=== PATIENT | female | born 1965 | race Caucasian/White ===

== ENCOUNTER 2019-04-23 17:56 | Inpatient (IN) ==
[2019-04-23] MEDS ORDERED: LABETALOL IV ONE (18:23)
--- NOTE | 2019-04-23 18:34 | EKG Report ---
Test Performed on : 04/23/2019 6:11:41 PM Test Reason : Stroke like symptoms Blood Pressure : / mmHG Vent. Rate : 102 BPM Atrial Rate : 102 BPM P-R Int : 128 ms QRS Dur : 070 ms QT Int : 374 ms P-R-T Axes : 063 069 081 degrees QTc Int : 487 ms Sinus tachycardia. Otherwise normal ECG When compared with ECG of 21-DEC-2016 12:56, ID interval has increased Unconfirmed Result
[2019-04-23 18:49] LABS: BASO# 0.04 X1000 (0.0-0.2); BASO% 0.4 % (0.0-0.8); EOS# 0.36 X1000 (0.0-0.7); HEMATOCRIT 49.3 % (37.0-47.0); HEMOGLOBIN 16.8 g/dL (12.0-16.0); LYMPH# 2.77 X1000 (1.2-3.4); LYMPH% 30.7 % (20.5-51.1); MCH 30.1 PG (27-31); MCHC 34.1 g/dL (33-37); MCV 88.2 FL (81-99); MONO# 0.74 X1000 (0.11-0.59); MONO% 8.2 % (1.7-9.3); NEUT# 5.11 X1000 (1.4-6.5); NEUT% 56.7 % (42.2-75.2); PLT 245 X1000 (130-400); RBC 5.59 XMIL (4.2-5.4); RDW 13.3 % (11.5-14.5); WBC 9.02 X1000 (4.8-10.8)
--- NOTE | 2019-04-23 18:55 | PROVIDER DOCUMENTATION ---
This chart was entered by Lisy Harrison Scribe, acting as scribe for Saul Palomares MD. HPI-General Adult - General Source: patient - History of Present Illness -Gen Adult Nature of Presenting Problems: pt is a 53 yr old female presenting with complaint of left arm and leg weakness onset 1500 today, pt reports difficulty lift arm at onset, now resolved. pt re ports numbness continues.. pt also reports onset of headache approx 30min captain cannery tender. pt denies any chest pain, shortness of breath, dizziness, nausea or vomiting. pt denies any facial numbness Location of Pain/Injury: reports: head Pain Radiation: reports: no radiation Quality of Pain: reports: throbbing Severity: reports: moderate Onset/Duration: reports: this afternoon Timing: reports: still present, changing over time Context/Activities at Onset: reports: light activity Modifying Factors: improves with: nothing Associated Symptoms: reports: headaches, sensory/motor loss (left arm, left leg) . denies: chest pain, dizziness, fatigue, fever/chills, nausea, syncope, vomiting, trouble walking Similar Symptoms Previously?: No Recently seen or treated by another doctor?: No <Saul Palomares - Last Filed: 04/23/19 20:21> <Elda Reveles - Last Filed: 04/23/19 21:27> - General Chief Complaint: Numbness Stated Complaint: LT SIDE NUMBNESS Time Seen by Provider: 04/23/19 18:15 Allergies/Adverse Reactions: Patient Allergies Allergy/AdvReac Type Severity Reaction Status Date / Time No Known Allergies Allergy Verified 04/23/19 18:36 Home Medications: Home Medication List Medication Instructions Recorded Confirmed Last Taken Type Albuterol 0.5% INH Conc [Albuterol 2.5 mg INH BID 07/04/14 04/23/19 12/21/16 History 0.5% INH Conc For Hyperkalemia] Albuterol Sulfate [Proair Hfa] 2 puff IH Q4-6H PRN PRN #1 06/17/16 04/23/19 04/23/19 Rx [email or web address] Lisinopril/Hydrochlorothiazide 1 each PO QAM #30 tablet 06/17/16 04/23/19 04/22/19 Rx [Lisinopril-Hctz 10-12.5 mg Tab] Review of Systems - Adult - REVIEW OF SYSTEMS - ADULT Constitutional: denies: fever, fatique Eyes: denies: decreased vision, blurred vision, double vision Ears, Nose, Mouth & Throat: reports: no symptoms reported Cardiovascular: denies: chest pain, palpitations, syncope Respiratory: denies: cough, shortness of breath Gastrointestinal: reports: no symptoms reported Genitourinary: reports: no symptoms reported Musculoskeletal: reports: muscle weakness (left arm, left leg). denies: back pain, joint pain, neck pain Integumentary: reports: no symptoms reported Neurological: reports: headache/migraines, numbness (left arm, left leg). denies: dizziness/vertigo, slurred speech Psychiatric: reports: no symptoms reported Endocrine: reports: no symptoms reported Hematologic/Lymphatic: reports: no symptoms reported Allergic/Immunologic: reports: no symptoms reported All Other Systems: Reviewed and Negative <Saul Palomares - Last Filed: 04/23/19 20:21> Past History - Adult - PAST MEDICAL HISTORY-ADULT Review of Records: reports: Old Records Reviewed, Nursing Assessment Review, Medications Reviewed, Social history reviewed & non-contributory. Major Childhood Illnesses: reports: denies history Cardiovascular: reports: CHF, HTN, PVD Respiratory: reports: COPD Gastrointestinal: reports: denies history Obstetrical/Gynecological: reports: denies history Genitourinary: reports: denies history Musculoskeletal: reports: chronic pain (back problems) Neurological: reports: denies history Endocrine/Immune: reports: denies history Other Conditions: reports: denies history - PRIOR SURGERIES/PROCEDURES Surgical/Procedure History: reports: hysterectomy - IMMUNIZATION STATUS Childhood Immunizations: See Nurse Assessment Flu Vaccine: See Nurse Assessment - FAMILY HISTORY Family History: reviewed, not pertinent - SOCIAL HISTORY Smoking: cigarettes, less than 1 pack/day Provider spent 3-5 mins advising pt. on dangers of tobacco.: Discussed manners to quit use, and f/u contacts for add'l counseling. Substance Use: denies Living Situation: family <Saul Palomares - Last Filed: 04/23/19 20:21> Physical Exam-General - PHYSICAL EXAM-ADULT Initial Vital Signs Reviewed: Yes - CONSTITUTIONAL General Appearance: appears well, alert, no apparent distress - EYES Eyes: PERRL/EOMI - HEAD, EARS, NOSE, MOUTH & THROAT HENMT: normocephalic/atraumatic, moist mucous membranes, normal ENT inspection - NECK Neck: non-tender, full range of motion, supple, normal inspection - RESPIRATORY Respiratory: chest non-tender, lungs clear, normal breath sounds, no respiratory distress, no accessory muscle use - CARDIOVASCULAR Cardiovascular: normal peripheral pulses, tachycardia - GASTROINTESTINAL (ABDOMEN) Abdominal Exam: normal bowel sounds, non tender, soft - LYMPHATIC Lymphatic: no adenopathy - MUSCULOSKELETAL Back Exam: normal inspection, no CVA tenderness, no vertebral tenderness Extremity: normal range of motion, non-tender, normal gait, no pedal edema, no calf tenderness, normal capillary refill Peripheral Pulses: radial (R): 2+, radial (L): 2+, dorsalis-pedis (R): 2+, dors surjit-pedis (L): 2+ - SKIN Integumentary: normal color, normal turgor, warm/dry - NEUROLOGIC Neurologic: motor weakness (4/5 left leg weakness), other (CN II-XII intact) - PSYCHIATRIC Psych/Mental Status: normal mood/affect <Saul Palomares - Last Filed: 04/23/19 20:21> Progress - PLAN OF CARE/RESULTS Progress/Plan/Lab Results: Vital Signs - 8 hr 04/23/19 18:04 Temperature 97.6 F Pulse Rate 112 H Respiratory Rate 19 Blood Pressure 183/111 O2 Sat by Pulse Oximetry 100 Orders Category Date Time Status Cardiac Monitoring DIRECTED Care 04/23/19 18:12 Active Finger Stick Blood Sugar (ED) DIRECTED Care 04/23/19 18:12 Active Oxygen Therapy- ED Nursing DIRECTED Care 04/23/19 18:12 Active Saline Loc NOW Care 04/23/19 18:12 Active CHEST-PORTABLE [RAD] Stat Exams 04/23/19 18:12 Ordered CBC WITH ELECTRONIC DIFF [HEME] Stat Lab 04/23/19 18:12 Uncollected COMPREHENSIVE METABOLIC PANEL [CHEM] Stat Lab 04/23/19 18:12 Uncollected PROTIME WITH INR [COAG] Stat Lab 04/23/19 18:12 Uncollected PTT [COAG] Stat Lab 04/23/19 18:12 Uncollected TROPONIN T Stat Lab 04/23/19 18:12 Uncollected URINALYSIS W/POSS RFLX CULT [URINALYSIS] Stat Lab 04/23/19 18:12 Uncollected URINE DRUG SCREEN Stat Lab 04/23/19 18:12 Uncollected Labetalol Med 04/23/19 18:23 Once 20 mg IV NOW ONE EKG [EKG] Stat Ther 04/23/19 18:12 Ordered Result Diagrams: 04/23/19 18:30 04/23/19 18:30 - EKG 1 Time of EKG reading by physician:: 18:14 EKG Read and Signed by:: Saul Palomares EKG Interpretation (*Must complete 3 of following elements*): Normal Rate: 102 Rhythm: sinus tach [place]: normal QRS: normal [place] Interval: normal ST Wave: normal - XRAY 1 XRAY Study: Chest Impression: Normal ( Signed EXAM: CHEST-PORTABLE INDICATION: stroke like symptoms TECHNIQUE: One view COMPARISON: 12/21/2016 FINDINGS: The lungs are grossly clear. There is no discrete pleural fluid collection or pneumothorax. The cardiomediastinal silhouette and central vasculature are grossly unremarkable. IMPRESSION: No evidence of acute pathology by plain radiograph. Electronically signed by Jimmy Caban 04/23/2019 7:09 PM 04/23/191908 Interpreting Physician: Jimmy Caban MD Dictated Date/Time: 04/23/191908 cc: Saul Palomares MD; None,PCP) Comparison with other Films: no changes (12/21/16) - CT/MRI 1 CT Study: Head Impression: Abnormal ( EXAM: CT HEAD W/O CONTRAST INDICATION: ? left arm and leg weakness TECHNIQUE: This exam was performed using automated exposure control, adjustment of mA or kV according to patient size, and/or use of it erative reconstruction technique. COMPARISON: 12/21/2016 FINDINGS: During the interval, there has been development of chronic lacunar infarcts involving the right basal ganglion and thalamus on the right as well as the right external capsule. Although these were not present on the previous study, they are near CSF density indicating that they're chronic. There is no definite acute infarct given the limited sensitivity of CT versus MRI. There is no discrete intracranial mass, mass effect, or intracranial hemorrhage. The surrounding soft tissues and bony structures are essentially unremarkable. IMPRESSION: Several chronic lacunar infarcts that have developed on the right since the previous study. No definite acute intracranial pathology is appreciated by CT. Electronically signed by Jimmy Caban 04/23/2019 7:19 PM 04/23/191918 Interpreting Physician: Jimmy Caban MD Dictated Date/Time: 04/23/191915 cc: Saul Palomares MD; None,PCP) Comparison with other Films: changes noted (12/21/16) - CHANGE OF SHIFT REPORT (ED Provider) 1 Report Given and Care Transferred to:: Dr. Araujo Time of Transfer: 19:00 Items Pending: Labs, CT/MRI Results <Saul Palomares - Last Filed: 04/23/19 20:21> - PLAN OF CARE/RESULTS Progress/Plan/Lab Results: Vital Signs - 8 hr 04/23/19 18:04 04/23/19 18:29 04/23/19 18:30 Temperature 97.6 F Pulse Rate 112 H 104 H 112 H Respiratory Rate 19 18 19 Blood Pressure 183/111 192/126 O2 Sat by Pulse Oximetry 100 99 100 04/23/19 18:31 04/23/19 18:45 04/23/19 18:52 Temperature Pulse Rate 107 H 103 H 87 Respiratory Rate 17 20 20 Blood Pressure 134/95 O2 Sat by Pulse Oximetry 100 100 98 04/23/19 19:00 04/23/19 19:17 04/23/19 19:30 Temperature Pulse Rate 87 84 86 Respiratory Rate 16 18 22 Blood Pressure O2 Sat by Pulse Oximetry 98 90 L 100 04/23/19 19:33 04/23/19 19:45 04/23/19 19:58 Temperature Pulse Rate 84 85 87 Respiratory Rate 20 20 15 Blood Pressure 134/95 181/128 O2 Sat by Pulse Oximetry 99 97 98 04/23/19 20:00 Temperature Pulse Rate 92 H Respiratory Rate 23 Blood Pressure O2 Sat by Pulse Oximetry 91 L Laboratory Results - last 24 hr 04/23/19 04/23/19 04/23/19 18:30 18:30 18:30 WBC 9.02 RBC 5.59 H Hgb 16.8 H Hct 49.3 H MCV 88.2 MCH 30.1 MCHC 34.1 RDW Std Deviation 13.3 Plt Count 245 MPV 11.0 H Immature Gran % (Auto) 0.0 Neut % (Auto) 56.7 Lymph % (Auto) 30.7 [place] % (Auto) 8.2 Eos % (Auto) 4.0 Baso % (Auto) 0.4 Immature Gran # (Auto) 0.00 Neut # (Auto) 5.11 Lymph # (Auto) 2.77 [place] # (Auto) 0.74 H Eos # (Auto) 0.36 Baso # (Auto) 0.04 PT 12.3 INR 0.91 PTT (Actin FS) 27.4 Sodium 141 Potassium 3.9 Chloride 101 Carbon Dioxide 26 Anion Gap 14 BUN 10 Creatinine 0.8 Estimated GFR/1.73 m2 > 60 BUN/Creatinine Ratio 13 Glucose 103 Calculated Osmolality 281 Calcium 8.7 L Total Bilirubin 0.31 AST 17 ALT 16 Alkaline Phosphatase 96 Troponin T Total Protein 7.1 Albumin 4.3 Globulin 2.8 Albumin/Globulin Ratio 1.5 Urine Source Urine Color Urine Turbidity Urine pH Ur Specific [place] Urine Protein Ur Glucose (Stick) Ur Ketones (Stick) Urine Blood Urine Nitrite Urine Bilirubin Urobilinogen Dipstick Urine Leukocytes Urine WBC (Auto) Urine RBC (Auto) U Epithel Cells (Auto) Urine Bacteria (Auto) Urine Opiates Screen Ur Oxycodone Screen Ur Methadone, Qual Ur Barbiturates Screen Ur Phencyclidine Scrn Ur Amphetamines Screen U Benzodiazepines Scrn Urine Cocaine Screen U Cannabinoids Screen 04/23/19 04/23/19 04/23/19 18:30 20:37 20:37 WBC RBC Hgb Hct MCV MCH MCHC RDW Std Deviation Plt Count MPV Immature Gran % (Auto) Neut % (Auto) Lymph % (Auto) [place] % (Auto) Eos % (Auto) Baso % (Auto) Immature Gran # (Auto) Neut # (Auto) Lymph # (Auto) [place] # (Auto) Eos # (Auto) Baso # (Auto) PT INR PTT (Actin FS) Sodium Potassium Chloride Carbon Dioxide Anion Gap BUN Creatinine Estimated GFR/1.73 m2 BUN/Creatinine Ratio Glucose Calculated Osmolality Calcium Total Bilirubin AST ALT Alkaline Phosphatase Troponin T < 0.010 Total Protein Albumin Globulin Albumin/Globulin Ratio Urine Source CLEAN CATCH Urine Color STRAW Urine Turbidity CLEAR Urine pH 6.5 Ur Specific [place] 1.008 Urine Protein NEGATIVE Ur Glucose (Stick) NEGATIVE Ur Ketones (Stick) NEGATIVE Urine Blood NEGATIVE Urine Nitrite NEGATIVE Urine Bilirubin NEGATIVE Urobilinogen Dipstick NORMAL Urine Leukocytes NEGATIVE Urine WBC (Auto) <10 Urine RBC (Auto) <10 U Epithel Cells (Auto) <10 Urine Bacteria (Auto) NEGATIVE Urine Opiates Screen NONE DETECTED Ur Oxycodone Screen NONE DETECTED Ur Methadone, Qual NONE DETECTED Ur Barbiturates Screen NONE DETECTED Ur Phencyclidine Scrn NONE DETECTED Ur Amphetamines Screen PRESUMPTIVE POSITIVE A U Benzodiazepines Scrn NONE DETECTED Urine Cocaine Screen NONE DETECTED U Cannabinoids Screen NONE DETECTED Orders Category Date Time Status Cardiac Monitoring DIRECTED Care 04/23/19 18:12 Active Finger Stick Blood Sugar (ED) DIRECTED Care 04/23/19 18:12 Active Oxygen Therapy- ED Nursing DIRECTED Care 04/23/19 18:12 Active Saline Loc NOW Care 04/23/19 18:12 Active CHEST-PORTABLE [RAD] Stat Exams 04/23/19 18:[address] HEAD W/O CONTRAST [CT] Stat Exams 04/23/19 18:24 Completed CBC WITH ELECTRONIC DIFF [HEME] Stat Lab 04/23/19 18:30 Completed COMPREHENSIVE METABOLIC PANEL [CHEM] Stat Lab 04/23/19 18:30 Completed PROTIME WITH INR [COAG] Stat Lab 04/23/19 18:30 Completed PTT [COAG] Stat Lab 04/23/19 18:30 Completed TROPONIN T Stat Lab 04/23/19 18:30 Completed URINALYSIS W/POSS RFLX CULT [URINALYSIS] Stat Lab 04/23/19 20:37 Completed URINE DRUG SCREEN Stat Lab 04/23/19 20:37 Completed Aspirin Med 04/23/19 20:05 Discontinued 325 mg PO NOW ONE Labetalol Med 04/23/19 18:23 Discontinued 20 mg IV NOW ONE Labetalol [Trandate] Med 04/23/19 20:32 Discontinued 100 mg PO NOW ONE EKG [EKG] Stat Ther 04/23/19 18:12 Draft Result Diagrams: 04/23/19 18:30 04/23/19 18:30 - REASSESSMENT Reassessment #1 Status: improving (continued mild left sided weakness and numbness but improved since onset. Concerning for a subacute CVA and not a TPA candidate as onset at 3pm. ASA given and BP improving with labetalol. Will admit for further evaluation and treatment. Discussed case with Dr. Walters, Hospitalist, who will see and admit pt.) <Elda Reveles - Last Filed: 04/23/19 21:27> Departure - Departure Date of Disposition Decision: 04/23/19 Certified Medical Emergency: Emergent <Saul Palomares - Last Filed: 04/23/19 20:21> - Departure Time of Disposition Decision: 21:24 - Critical Care Note This patient required my direct & personal management of CC.: No <Elda Reveles - Last Filed: 04/23/19 21:27> - Departure DIAGNOSIS: Numbness and tingling of left arm and leg CVA (cerebral vascular accident) Qualifiers: CVA mechanism: unspecified Qualified Code(s): I63.9 - Cerebral infarction, unspecified Disposition: ADMITTED INPATIENT 09 Condition: Stable Attestation - Physician/ LOCO Attestation Patient care was provided by Advanced Practice Provider:: No The physician spent face to face time with patient:: Yes Advanced Practice Provider documentation review:: Supervising physician onsite and consulted in the evaluation and care of this patient. The physician did have a face to face encounter with the patient. <Elda Reveles - Last Filed: 04/23/19 21:27> This chart was documented by the indicated scribe, (Lisy Harrison, Scriblilli) and accurately reflects the services I performed and decisions made by Marielle garcia Frederick B., MD, as attested by the provider's signature.
[2019-04-23 18:56] LABS: INR 0.91; PROTIME 12.3 Seconds (11.0-16.0)
[2019-04-23 18:57] LABS: PTT 27.4 Seconds (22.3-41.8)
--- NOTE | 2019-04-23 19:11 | Diag Imaging Result Doc PS360 ---
EXAM: CHEST-PORTABLE INDICATION: stroke like symptoms TECHNIQUE: One view COMPARISON: 12/21/2016 FINDINGS: The lungs are grossly clear. There is no discrete pleural fluid collection or pneumothorax. The cardiomediastinal silhouette and central vasculature are grossly unremarkable. IMPRESSION: No evidence of acute pathology by plain radiograph. Electronically signed by Jimmy Caban 04/23/2019 7:09 PM
--- NOTE | 2019-04-23 19:21 | Diag Imaging Result Doc PS360 ---
EXAM: CT HEAD W/O CONTRAST INDICATION: ? left arm and leg weakness TECHNIQUE: This exam was performed using automated exposure control, adjustment of mA or kV according to patient size, and/or use of iterative reconstruction technique. COMPARISON: 12/21/2016 FINDINGS: During the interval, there has been development of chronic lacunar infarcts involving the right basal ganglion and thalamus on the right as well as the right external capsule. Although these were not present on the previous study, they are near CSF density indicating that they're chronic. There is no definite acute infarct given the limited sensitivity of CT versus MRI. There is no discrete intracranial mass, mass effect, or intracranial hemorrhage. The surrounding soft tissues and bony structures are essentially unremarkable. IMPRESSION: Several chronic lacunar infarcts that have developed on the right since the previous study. No definite acute intracranial pathology is appreciated by CT. Electronically signed by Jimmy Caban 04/23/2019 7:19 PM
[2019-04-23 19:34] LABS: AGAP 14; ALB/GLOB RATIO 1.5; ALBUMIN 4.3 g/dL (3.5-5.0); ALKALINE PHOSPHATASE 96 U/L (32-104); BUN 10 mg/dL (8-22); CALCIUM 8.7 mg/dL (8.8-10.2); CHLORIDE 101 mmol/L (98-107); COSMO 281; CREATININE 0.8 mg/dL (0.5-0.9); ESTIMATED GFR > 60; GLUCOSE 103 mg/dL (70-104); GOT 17 U/L (10-30); GPT 16 U/L (10-36); POTASSIUM 3.9 mmol/L (3.5-5.1); SODIUM 141 mmol/L (136-145); TCO2 26 mmol/L (25-35); TOTAL BILIRUBIN 0.31 mg/dL (0.20-1.00); TOTAL PROTEIN 7.1 g/dL (6.3-8.3)
[2019-04-23] MEDS ORDERED: ASPIRIN PO ONE (20:05)
[2019-04-23] MEDS ORDERED: TRANDATE PO ONE (20:32)
[2019-04-23 20:42] LABS: URINE SOURCE CLEAN CATCH
[2019-04-23 20:48] LABS: COLOR STRAW; TURBIDITY URINE CLEAR (CLEAR)
[2019-04-23 20:49] LABS: BILIRUBIN URINE NEGATIVE (NEGATIVE); BLOOD URINE NEGATIVE (NEGATIVE); GLUCOSE URINE NEGATIVE (NEGATIVE); KETONE URINE NEGATIVE (NEGATIVE); LEUKOCYTES URINE NEGATIVE (NEGATIVE); NITRITE URINE NEGATIVE (NEGATIVE); PH URINE 6.5; PROTEIN URINE NEGATIVE (NEGATIVE); SP GRAVITY URINE 1.008; UROBILINOGEN URINE NORMAL (NORMAL)
[2019-04-23 20:50] LABS: UR EPITHELIAL CELLS <10 /HPF (<10); URINE BACTERIA NEGATIVE /HPF; URINE RBC <10 /HPF (<10); URINE WBC <10 /HPF (<10)
[2019-04-23 21:09] LABS: UR AMPHETAMINES QUAL PRESUMPTIVE POSITIVE (NONE DETECT); UR BARBITUATES QUAL NONE DETECTED (NONE DETECT); UR BENZODIAZEPIN QUAL NONE DETECTED (NONE DETECT); UR CANNABINOIDS QUAL NONE DETECTED (NONE DETECT); UR COCAINE QUAL NONE DETECTED (NONE DETECT); UR METHADONE QUAL NONE DETECTED (NONE DETECT); UR OPIATES QUAL NONE DETECTED (NONE DETECT); UR OXYCODONE QUAL NONE DETECTED (NONE DETECT); UR PCP QUAL NONE DETECTED (NONE DETECT)
[2019-04-23] MEDS ORDERED: ZOFRAN IV PRN (22:44)
[2019-04-24] MEDS: NS 1,000 ML IV SCH ×2 (00:12→12:49)
--- NOTE | 2019-04-24 02:26 | HISTORY AND PHYSICAL ---
CHIEF COMPLAINT: Left-sided weakness. HISTORY OF PRESENT ILLNESS: The patient is a 53-year-old female who unfortunately has a known history of chronic tobacco abuse for which she still smokes. She denies any history of stroke in the past. Does have high blood pressure but states she does not typically check it at home. She presented to the hospital with left-sided weakness. Interestingly, this left-sided weakness seems to come and go. She was able to feed herself a cheeseburger until her daughter arrived and now she has no movement of her left arm. MEDICATIONS: Albuterol, lisinopril, hydrochlorothiazide. PAST MEDICAL HISTORY: Significant for hypertension, chronic tobacco abuse, chronic pain, COPD. Has a reported history of peripheral vascular disease and congestive heart failure. SURGICAL HISTORY: She has had a hysterectomy. FAMILY HISTORY: Positive for hypertension. SOCIAL HISTORY: The patient continues to smoke anywhere from a half to a pack a day. Denies alcohol. She denies substance use. ALLERGIES: No known drug allergies. PHYSICAL EXAMINATION: VITAL SIGNS: Reviewed. Temperature 97.6 degrees, pulse 112, respiratory 19, BP 183/111, saturation currently 100% on room air. GENERAL: Patient is awake, alert. She is in no current respiratory distress. HEENT: Normocephalic. NECK: Supple. CARDIOVASCULAR: Regular rate currently although has been quite tachycardic upon initial arrival. No murmurs. CHEST: Clear, nonlabored. ABDOMEN: Soft, nondistended, nontender. EXTREMITIES: No edema. She moves her right upper and lower extremity without any difficulty. She does have 1/5 strength in her left foot. Her left hand she notes that she has no ability to move it as her hand is sitting at the side of her waist with her fingers clenched in a fist-like motion. NEUROLOGIC: She is awake, alert, oriented. Denies any facial issues. Denies any blurred vision. Denies any difficulty swallowing. LABORATORIES: CBC normal. CMP normal. Urine drug screen abnormal for methamphetamines. ASSESSMENT: 1. Hypertensive urgency. Blood pressures are much improved at 134/95 compared to her 190s over 130s upon initial admission to the hospital. 2. Transient ischemic attack. 3. Chronic tobacco abuse. 4. Abnormal urine drug screen. 5. History of congestive heart failure. PLAN: We will admit patient to the hospital. We are going to follow her blood pressures. Check echo and carotid in the morning. Continue to treat her blood pressure with hydralazine. We will monitor for withdrawal. Again discussed with patient the perils of smoking as well as the importance of stopping. We will check cholesterol in the morning. Further orders as needed. cc: Richard Walters MD
[2019-04-24 05:48] LABS: HEMATOCRIT 46.9 % (37.0-47.0); HEMOGLOBIN 15.6 g/dL (12.0-16.0); MCH 29.7 PG (27-31); MCHC 33.3 g/dL (33-37); MCV 89.2 FL (81-99); MPV 10.8 FL (7.4-10.4); RBC 5.26 XMIL (4.2-5.4); RDW 13.2 % (11.5-14.5); WBC 7.52 X1000 (4.8-10.8)
[2019-04-24 06:26] LABS: AGAP 9; ALB/GLOB RATIO 1.5; ALBUMIN 3.6 g/dL (3.5-5.0); ALKALINE PHOSPHATASE 86 U/L (32-104); BUN 11 mg/dL (8-22); CALCIUM 8.3 mg/dL (8.8-10.2); CHLORIDE 105 mmol/L (98-107); COSMO 280; CREATININE 0.7 mg/dL (0.5-0.9); ESTIMATED GFR > 60; GLUCOSE 83 mg/dL (70-104); GOT 12 U/L (10-30); GPT 13 U/L (10-36); MAGNESIUM 1.7 mg/dL (1.5-2.7); POTASSIUM 3.4 mmol/L (3.5-5.1); SODIUM 141 mmol/L (136-145); TCO2 27 mmol/L (25-35); TOTAL BILIRUBIN 0.42 mg/dL (0.20-1.00)
[2019-04-24 06:27] LABS: CHOLESTEROL 186 mg/dL (0-200); HDL 50 mg/dL (45-65); LDL 116 mg/dL; TRIGLYCERIDES 101 mg/dL (35-135); VLDL 20 mg/dL
[2019-04-24] MEDS: TYLENOL PO PRN (09:01)
[2019-04-24] MEDS: APRESOLINE IV PRN ×2 (09:02→14:09)
[2019-04-24] MEDS ORDERED: MORPHINE IV ONE (10:44)
[2019-04-24] MEDS ORDERED: KLOR-CON PO ONE (11:06)
[2019-04-24] MEDS ORDERED: ULTRAM PO PRN (11:24)
[2019-04-24] MEDS: PRINZIDE 10/12.5MG PO SCH (12:31)
--- NOTE | 2019-04-24 13:00 | Diag Imaging Result Doc PS360 ---
EXAM: MRI BRAIN W/O CONTRAST 04/24/2019 HISTORY: Stroke TECHNIQUE: T1 sagittal and axial, T2, FLAIR, DWI axial and coronal gradient echo COMMENT: There are multiple punctate areas of increased T2-weighted signal intensity present in the left cerebellar peduncle and in the upper ama and midbrain. There are multiple lacunae present in the right thalamus and basal ganglia. There are patchy areas of increased T2-weighted signal intensity in the centrum semiovale ovale region bilaterally and in the periventricular white matter particularly in the frontal lobes. There is a focus of increased T2-weighted signal intensity in the external capsule on the right and posteriorly in the internal capsule on the left. There is no evidence of bleed or abnormal extra-axial fluid collection. There are foci of restricted diffusion present in the caudate nucleus on the left and in the posterior limb of the internal capsule and adjacent basal ganglia on the right. No evidence of mass effect is present. IMPRESSION: Multiple acute or subacute lacunar infarctions as described above. Chronic ischemic microvascular changes. The findings were discussed with Uriah Guzman MD at 04/24/2019 12:54 PM. Electronically signed by Douglas Rangel 04/24/2019 12:58 PM
--- NOTE | 2019-04-24 13:03 | Diag Imaging Result Doc PS360 ---
EXAM: MRA BRAIN W/CONTRAST 04/24/2019 HISTORY: Stroke TECHNIQUE: 3-D [id number] COMMENT: The left posterior cerebral artery is supplied primarily from the posterior communicating artery. The P1 segment appears to be hypoplastic or occluded. There is also an apparent stenotic area in the P1 segment on the right side. Both anterior cerebral and middle cerebral arteries are patent. There is no evidence of aneurysm. 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 The possibility of additional small vessel disease cannot be excluded. Electronically signed by Douglas Rangel 04/24/2019 1:00 PM
--- NOTE | 2019-04-24 13:16 | PROGRESS NOTE ---
DATE: 04/24/2019 SUBJECTIVE: This patient is lying comfortably in bed. She is not able to move her left upper extremity and strength at the level of the left lower extremity is about 2/5. Sensation looks intact. I have requested an MRI of the head as well, carotic ultrasound and echocardiogram. Also have requested physical therapy and an evaluation by Neurology Department. OBJECTIVE: Vital Signs: Temperature 97.6 degrees, pulse 85, respiratory rate 18, blood pressure 179/120, oxygen saturation 96 on room air. HEENT: Head normocephalic. No trauma, PERRLA. Neck: Supple. No JVD. No masses. Central trachea. Chest: Clear to auscultation. No wheezing. No rales. Abdomen: Soft, nontender, nondistended. No hepatosplenomegaly. Extremities: No edema, no clubbing, no cyanosis. Neurological: The patient is alert. She is oriented x3. She is following commands. She does have left-sided weakness. Left upper extremity 0/5, left lower extremity 2/5, sensation appears to be intact. LABORATORY DATA: WBC 7.5, hemoglobin 15.6, hematocrit 46.9, platelets 215,000. Sodium 141, potassium 3.4, chloride 105, bicarbonate 27, BUN 11, creatinine 0.7, glucose 83, calcium 8.3, AST 12, ALT 13, alkaline phosphatase 86, albumin 3.6. ASSESSMENT AND PLAN: 1. Likely right cerebral hemisphere cerebrovascular accident. Apparently this patient was having more movement yesterday when she came in and we thought that probably that was related to a transient ischemic attack, but today when I examined the patient, she was not able to move her left upper extremity and she was moving 2/5 her left lower extremity. I have placed this patient on aspirin, statin. I will allow permissive hypertension. I have also requested an MRI and MRA of the brain, carotid ultrasound and echocardiogram. She does have some risk factor for stroke including a long smoking history and hypertension, which is uncontrolled. I have consulted Neurology Department as well. 2. Uncontrolled hypertension. I will allow the patient to have elevated blood pressure for now at least for 24 hours. Apparently, she started having symptoms of stroke yesterday in the afternoon. I will wait for Neurology Department evaluation and recommendations. 3. Hypokalemia. I will replace the potassium. 4. Chronic tobacco abuse. This patient has been highly advised against tobacco use. Will continue with daily cessation education. She needs to stop completely. She needs to stop tobacco use completely. 5. Abnormal urine toxicology results, positive for amphetamines. She has been advised against drug use and I will continue with daily cessation education. 6. Apparently, she has a history of congestive heart failure, but I do not have any records from that. I have requested an echocardiogram. I will wait for results. cc: Uriah Foreman MD
[2019-04-24] MEDS ORDERED: DILAUDID IV PRN (14:20)
--- NOTE | 2019-04-24 17:14 | ECHO REPORT ---
ORDER DATE: 04/24/2019 INTERPRETING PHYSICIAN: Dr. Sav Padron ECHOCARDIOGRAPHIC MEASUREMENTS: 1. Interventricular septum: 0.8 cm. 2. Left ventricular posterior wall: 0.8 cm. 3. Diastolic diameter: 4.0 cm. 4. Left atrium: 3.1 cm. 5. Aorta: 3.1 cm. SUMMARY OF THE 2-DIMENSIONAL IMAGIN. Aortic valve leaflets not well visualized. Appears to be bicuspid. 2. Pulmonic valve not well visualized. 3. Mitral valve was normal. 4. Tricuspid valve was normal. 5. There is mild mitral regurgitation. 6. Mild tricuspid regurgitation. 7. Peak velocity across the tricuspid valve was 2.3 metes per second. 8. Peak velocity across the aortic valve less than 2 meters per second. 9. By Doppler studies, there is no aortic stenosis or regurgitation. 10. Normal left ventricular cavity size. 11. Estimated ejection fraction of 50%, low normal 12. There is grade 1 diastolic dysfunction. 13. There is no pericardial effusion or obvious intracardiac mass or thrombus. cc: MD Richard Mcnamara MD
[2019-04-24] MEDS: DILAUDID IV PRN (21:08)
[2019-04-24] MEDS: LIPITOR PO SCH (21:09)
[2019-04-25] MEDS: NS 1,000 ML IV SCH ×2 (01:23→16:11)
[2019-04-25] MEDS: DILAUDID IV PRN ×5 (01:38→21:04)
--- NOTE | 2019-04-25 06:57 | CONSULTATION ---
DATE OF CONSULTATION: 04/24/2019 REASON FOR CONSULTATION: Stroke history. HISTORY OF PRESENT ILLNESS: This is a 53-year-old right-handed female with a history of uncontrolled hypertension and tobacco abuse. She was admitted yesterday with stroke-like symptoms. History is from the patient. She reports she felt well yesterday, but had a sudden onset of some discomfort in her left arm, this progressed rather quickly into more prominent left arm and leg weakness. She did not notice facial changes. She did not have speech difficulties. No other associated symptoms. She did have a headache, but she typically has headaches daily and did not feel that this was out of the ordinary. Her symptoms somewhat fluctuated initially on her arrival, but since then they have been more persistent into the evening and today. Initial head CT did not show acute findings. MRI today did show multiple acute or subacute lacunar infarcts within the right posterior limb of the internal capsule and basal ganglia, as well as the left caudate nucleus. The patient denies previous history of stroke or other major neurologic event. She reports being noncompliant with at home. She should be taking antihypertensive medication, but she does not. PAST MEDICAL HISTORY: 1. Hypertension uncontrolled. 2. Tobacco abuse. 3. Chronic pain. 4. COPD. 5. Reported peripheral vascular disease and congestive heart failure. 6. Hysterectomy. FAMILY HISTORY: Positive for hypertension, stroke in her mother in her late 60s. SOCIAL HISTORY: She is a current smoker. No alcohol. She denied illicits. U- tox was positive for amphetamines. ALLERGIES: No known drug allergies listed. HOME MEDICATIONS: She is not been taking any. She does take some Goody powders. PHYSICAL EXAMINATION: Vital Signs: Afebrile. Blood pressure 183/111 on admission, current 114- 176 systolic over 75-108 diastolic, pulse 80s-101, respirations 20, O2 sat 100% on room air. General: Ms. Santos is sitting up in bed. Neurologic: Awake, alert, oriented, speech fluent, no dysarthria, attention and concentration intact, follows simple and complex commands. Left and right digit distinction preserved. Pupils are equal, round and reactive. Gaze conjugate and forward. Extraocular movements are full. Visual caraballo intact to direct confrontational testing. Face is symmetric with equal activation. Facial sensation reported intact. Tongue is midline. Palate elevates symmetrically. Full shoulder shrug on the right. No movement on the left. The patient has 1/5 movement of the deltoid on the left arm, otherwise no movement on the left arm. Right arm and leg power is preserved. On the left leg she has 4/5 weakness. She is unable to perform rapid alternating movements with the left hand. She reports preserved sensation to light touch. No clonus. Plantar responses downgoing. Two plus ankle jerks and knee jerks as well as reflexes at the wrists. IMAGING: MRI of the brain personally reviewed, multiple acute or subacute lacunar infarcts on the left caudate nucleus and right posterior limb internal capsule and adjacent basal ganglia. There is chronic microvascular ischemic changes. MRA of the brain, occlusion of the left P1 segment, stenosis of the right P1 segment. LABORATORY DATA: Reviewed. Normal white count. Platelets, BUN, creatinine, blood sugars normal. Triglycerides 101, LDL 116, HDL 50. Toxicology positive for amphetamines. ASSESSMENT AND PLAN: The patient is a 53-year-old female with uncontrolled hypertension and tobacco abuse presenting with an acute onset left hemiparesis. She has had multiple lacunar infarcts as detailed above. I agree with stroke workup as you have ordered. I agree with antiplatelet therapy, statin therapy. She was counseled on smoking cessation. Cautious blood pressure management with avoidance of hypotension for the next day or two. Over the long-term she will need more tight control of her blood pressure. Speech therapy for swallow assessment if that has not already been done. PT/OT. Thank you for the consultation. cc: Jackie Tsai MD MTDD
[2019-04-25 07:46] LABS: HEMATOCRIT 48.2 % (37.0-47.0); MCH 30.5 PG (27-31); MCHC 33.2 g/dL (33-37); MCV 91.8 FL (81-99); MPV 11.5 FL (7.4-10.4); RBC 5.25 XMIL (4.2-5.4); RDW 13.6 % (11.5-14.5)
[2019-04-25 08:14] LABS: AGAP 11; BUN 12 mg/dL (8-22); CALCIUM 9.2 mg/dL (8.8-10.2); CHLORIDE 101 mmol/L (98-107); COSMO 281; CREATININE 0.7 mg/dL (0.5-0.9); ESTIMATED GFR > 60; GLUCOSE 95 mg/dL (70-104); POTASSIUM 3.9 mmol/L (3.5-5.1); SODIUM 141 mmol/L (136-145); TCO2 29 mmol/L (25-35)
[2019-04-25] MEDS: ASPIRIN PO SCH (08:54)
--- NOTE | 2019-04-25 13:38 | PROGRESS NOTE ---
DATE: 04/25/2019 SUBJECTIVE: No major overnight events. The patient reports moving her arm a little bit better and her leg. She had a headache, but that has improved now. OBJECTIVE: Vital Signs: Blood pressure 159/97, pulse 82, afebrile. Ms. Oro is sitting up in bed. She has visitors currently. She is awake, alert, oriented. Speech is fluent. No dysarthria. Follows simple and complex commands. She is attentive. She moved the left deltoid at least 3/5 today. Absent movement more distally, including the hand, the lower extremities at least against gravity. Pupils are equal. Gaze is conjugate. Ocular movements are full. Face appears symmetric with equal activation. LABS: Reviewed in the chart. ASSESSMENT AND PLAN: 1. Multiple acute lacunar strokes. 2. Left hemiparesis. 3. Uncontrolled hypertension. 4. Tobacco abuse. She continues to show some improvement clinically which is reassuring in terms of her recovery. I again counseled her on smoking cessation and the importance of taking her medications as prescribed. She will need PT and OT. No further recommendations to add to yesterday. cc: Jackie Tsai MD
--- NOTE | 2019-04-25 15:03 | PROGRESS NOTE ---
DATE: 04/25/2019 SUBJECTIVE: This patient is lying comfortably in bed. She is still not able to move her left upper extremity, but the left lower extremity seems to be improving, now is around 2 to 3/5. Sensation still intact. MRI showed multiple acute or subacute lacunar infarctions. Will continue with the same management. Continue physical therapy, occupational therapy, and speech therapy. She seems to be swallowing okay. OBJECTIVE: Vital Signs: Temperature 97.8 degrees, pulse 82, respiratory rate 16, blood pressure 159/97, oxygen saturation 97% on room air. HEENT: Head normocephalic. No trauma. PERRLA. Neck: Supple. No JVD. No masses. Central trachea. Chest: Clear to auscultation. No wheezing. No rales. Abdomen: Soft, nontender, nondistended. No hepatosplenomegaly. Extremities: No edema, no clubbing, no cyanosis. Neurological: The patient is alert. She is oriented x3. Strength at the level of the left upper extremity is 0/5. Her left lower extremity though is better compared with yesterday, and is around 2 to 3/5. Sensation is intact. LABORATORY DATA: WBC 8, hemoglobin 16, hematocrit 48.2, platelets 219,000. Sodium 141, potassium 3.9, chloride 101, bicarbonate 29, BUN 12, creatinine 0.9, glucose 95, calcium 9.2. ASSESSMENT AND PLAN: 1. Multiple acute or subacute lacunar infarction. Continue physical therapy, occupational therapy, and speech therapy. She seems to be doing better compared with yesterday. Will continue with the same management. Hopefully, this patient will be discharged in the next 24 to 48 hours. Echocardiogram showed an estimated ejection fraction a little bit low at 50%, but no obvious intracardiac mass or thrombus. 2. Uncontrolled hypertension. I have placed this patient back on her home medication of lisinopril/hydrochlorothiazide. As per the patient, she was not taking the medications. 3. Hypokalemia has been already replaced. 4. Chronic tobacco use. This patient has been highly advised against tobacco use. Will continue with daily cessation education. 5. Abnormal urine toxicology that is presumptive positive for amphetamines. She has been advised against drug use, and I will continue with daily cessation education. 6. History of congestive heart failure with a mildly low ejection fraction at 50%. Aware. Continue with the same treatment for now. cc: Uriah Foreman MD
[2019-04-25] MEDS: LIPITOR PO SCH (21:04)
[2019-04-26] MEDS: DILAUDID IV PRN ×2 (01:45→10:35)
[2019-04-26] MEDS: APRESOLINE IV PRN (02:29)
[2019-04-26] MEDS: NS 1,000 ML IV SCH (06:41)
[2019-04-26] MEDS: TYLENOL PO PRN (06:41)
[2019-04-26 07:25] VITALS: BP 173/98
[2019-04-26] MEDS ORDERED: NORVASC PO SCH (09:00)
[2019-04-26] MEDS: ASPIRIN PO SCH (09:10)
[2019-04-26] MEDS: PRINZIDE 10/12.5MG PO SCH (09:10)
[2019-04-26] MEDS ORDERED: LOPRESSOR PO SCH (10:00)
--- NOTE | 2019-04-26 10:26 | PROGRESS NOTE ---
DATE: 04/26/2019 SUBJECTIVE: This patient is lying in bed. She is not able to move her left upper extremity but she seems to be doing better with her left lower extremity. MRI showed multiple acute or subacute lacunar infarcts. We will continue physical therapy, occupational therapy, speech therapy. I will try to send this patient to a rehab center. Blood pressure is still elevated. I have placed this patient back on lisinopril hydrochlorothiazide and also I added amlodipine to her medications. She is tolerating p.o. I will stop the IV fluids. OBJECTIVE: Vital Signs: Temperature 98.1, pulse 97, respiratory rate 16, blood pressure 173/98, oxygen saturation 100% on room air. HEENT: Head normocephalic. No trauma. PERRLA. Facial deviation. Neck: Supple. No JVD. No masses. Central trachea. Chest: Clear to auscultation. No wheezing. No rales. Abdomen: Soft, nontender, nondistended. No hepatosplenomegaly. Extremities: No edema, no clubbing, no cyanosis. Neurological: The patient is alert. She is oriented x3. Strength at the level of the left upper extremity is around 0/5. Her left lower extremity is a bit better compared with admission. It is around 2 to 3/5. Sensation is intact. LABORATORY: No lab work done today. Laboratory from yesterday seems to be stable. ASSESSMENT AND PLAN: 1. Multiple acute or subacute lacunar infarctions with left-sided weakness. Continue physical therapy, occupational therapy and speech therapy. Her left lower extremity seems to be doing better compared with admission. We have requested an evaluation by physical therapy, occupational therapy, so we can discharge this patient to a rehab center. Echocardiogram showed an estimated ejection fraction a little bit low at 50%, but she has a history of CHF, not obvious intracardiac mass or thrombus. 2. Uncontrolled hypertension. I have placed this patient back on her home medications. She is on lisinopril and hydrochlorothiazide. I added amlodipine and since this patient has some CHF, I will put her on a low dose of metoprolol to see how she does. I will stop the fluids. 3. Hypokalemia, resolved. 4. Chronic tobacco use and abuse. This patient has been highly advised against tobacco use. I will continue with daily cessation education. 5. Abnormal urine toxicology that showed a presumptive positive result for amphetamine. She has been advised against drug use. I will continue with daily cessation education as well. 6. History of congestive heart failure with mildly low ejection fraction at 50%. Like I mentioned before, I have stopped the fluids and I will give her a low dose of metoprolol. She is already on lisinopril. cc: Uriah Foreman MD
--- NOTE | 2019-04-26 13:10 | DISCHARGE SUMMARY ---
ADMISSION DATE: 04/24/2019 DISCHARGE DATE: DISCHARGE DIAGNOSIS: 1. Multiple acute or subacute lacunar infarctions with left-sided weakness. 2. Uncontrolled hypertension. 3. Hypokalemia, resolved. 4. Chronic tobacco use and abuse. 5. Abnormal urine toxicology that showed a presumptive positive result for amphetamine. 6. History of congestive heart failure with a mildly low ejection fraction at 50%. PROCEDURES PERFORMED: 1. Chest x-ray dated 04/23/2019 impression: No evidence of acute pathology by plain radiograph. 2. Head CT dated 04/23/2019 impression: Several chronic lacunar infarctions that have developed on the right since the previous study, no definite acute intracranial pathology is appreciated by CT. 3. Echocardiogram dated 04/24/2019: Estimated ejection fraction 50%, low-normal. 4. Brain MRI dated 04/24/2019 impression: Occlusion of the left P1 segment and stenosis of the right P1 segment. The possibility of additional small vessel disease cannot be excluded. 5. Brain MRI dated 04/24/2019 impression: Multiple acute or subacute lacunar infarctions. 6. Carotid ultrasound, bilateral stenosis around 0-39%. CONSULTATIONS: Neurology Department, Jackie Tsai MD. HOSPITAL COURSE: A 53-year-old female with a past medical history of uncontrolled hypertension, chronic tobacco use, chronic pain, COPD, presented to the emergency department on 04/24/2019 due to left-sided weakness, it looks like the left-sided weakness seems to come and go. She was able to feed herself a cheeseburger until her daughter arrived and now she has no movement of her left arm. We did a CT scan and also an MRI that showed multiple lacunar infarctions. She is still is not able to move her left upper extremity and she is able to move better her left lower extremity, I would say around 3-4/5. She has a little bit of facial deviation but she has no problem swallowing. She has been tolerating her food. Her blood pressure has been going up and down. We did an echocardiogram because it looks like she has a little bit of CHF with a low ejection fraction of 50%, and as per the patient's report she was told that she had CHF before. Interestingly, she is not on any treatment for that other than lisinopril. For her blood pressure, I added a low dose of metoprolol, I will continue her dose of lisinopril, hydrochlorothiazide, and also will add amlodipine. She seems to be stable. She is going to a rehab center. Like I mentioned before, she is not able to move her left upper extremity and she has been moving more her left lower extremity since admission. OBJECTIVE: Vital signs: Temperature 98.1, pulse 97, respiratory rate 16, blood pressure 173/98, oxygen saturation 100% on room air. HEENT: Normocephalic. No trauma. PERRLA. A little bit of facial deviation. Neck: Supple. No JVD. Central trachea. Chest: Clear to auscultation. No wheezing or rales. Abdomen: Soft, nontender, nondistended. No hepatosplenomegaly. Extremities: No edema, no clubbing, no cyanosis. Neurological: This patient today is alert. She is oriented x3. Her strength at the level of the left upper extremity is 0/5, left lower extremity I would say 3-4/5, but she is completely alert, she is oriented. LABORATORY: From yesterday, WBC 8, hemoglobin 16, hematocrit 48, platelet 219. Sodium 141, potassium 3.9, chloride 101, bicarbonate 29, BUN 12, creatinine 0.7, glucose 95, calcium 9.2. DISCHARGE MEDICATIONS: 1. Acetaminophen 350 mg p.o. q.6 hours as needed. 2. Albuterol sulfate 2 puffs inhaled q.4-6 hours as needed for shortness of breath. 3. Amlodipine 5 mg p.o. b.i.d. 4. Aspirin 325 mg p.o. daily. 5. Lipitor 20 mg p.o. at bedtime. 6. Lisinopril/hydrochlorothiazide 10/12.5 p.o. daily. 7. Metoprolol 12.5 mg p.o. b.i.d. 8. Tramadol 50 mg p.o. q.6 hours as needed for pain. TIME DISCHARGING THIS PATIENT: 35 minutes. cc: Uriah Foreman MD
--- NOTE | 2019-04-26 13:40 | PROGRESS NOTE ---
DATE: 04/26/2019 SUBJECTIVE: Dr. Tsai saw Ms. Santos earlier this week for Neurology evaluation. She had presented with left-sided weakness which has been improving. She has not had trouble chewing or swallowing solids. She reports occasional minimal difficulty swallowing liquids. Her systolic blood pressures have ranged 110s to 180s in the last 48 hours. There was MRI evidence of multiple bilateral subcortical lacunes, and some of these appear to be acute bilaterally. Risk factors include cigarette smoking, hypertension, dyslipidemia. On exam, she has minimal left shoulder shrug. I do not see any other definite voluntary power in the left arm. She moved her left leg. Left facial motility is slightly diminished. She reports good sensation over the left and right hand. Proprioception is good at the left index finger PIP joint. Visual caraballo are full to confrontational finger counting. Tongue is midline. I encouraged her to quit smoking and to be aggressive with management of her risk factors. Thanks for asking Neurology to see Ms. Santos. cc: MD OTILIO Garvey III
--- NOTE | 2019-04-26 18:38 | Carotid Study ---
DATE: 04/23/2019 DESCRIPTION OF STUDY: This is the bilateral duplex and color flow imaging of the carotid arteries performed using the GE vivid E9 ultrasound System with a 9-LD transducer. REFERRING PHYSICIAN: Dr. Walters DIRECTOR OF SALES: Ariadne Varela RVT INDICATIONS: Transient ischemic attack. FINDINGS: The velocities and centimeters per second were reviewed for both carotid systems. The right ICA:CCA ratio was 1.07 corresponding to percent stenosis of 0% to 39%. The left ICA:CCA ratio is 1.19 corresponding to percent stenosis of 0% to 39%. INTERPRETATION: Normal bilateral carotid arterial study. cc: MD Richard Sommers MD
== END 2019-04-26 15:34 | DRG 65 ==
LOC: ED 17:56 → EDIPHOLD 04-24 00:15 → SUATTDRO 04-24 00:15 → 3N 04-24 13:15
PROVIDERS: ATTEND Internal Medicine